=== PATIENT | female | born 1960 | race Caucasian/White ===

== ENCOUNTER 2016-12-01 14:21 | Emergency (ER) | payer MEDICAID ==
[2016-12-01 14:33] VITALS: O2SAT 94
--- NOTE | 2016-12-01 14:33 | EDPHY ---
H & P Stated Complaint: SOB/Wheezing HPI/ROS: HPI CHIEF COMPLAINT: Asthma, wheezing HISTORY OF PRESENT ILLNESS: This patient very pleasant 56-year-old female significant past medical history for asthma. Patient has a nebulizer machine at home she also has albuterol inhaler. She tells me over the past 5 days she has had progressively worsening shortness of breath with wheezing. She denies productive cough. Denies fever, denies chest pain. She tells me she has been using her nebulizer machine twice per day and then her albuterol inhaler 5-6 times per day. She does endorse cough, however no productive sputum. No fever. States that she had called 911 and arrived by ambulance here today due to progressively worsening shortness of breath and wheezing. Denies history of cardiac disease, denies history of PE. Denies recent illness except for asthma for the past 5 days. States at times when she gets this been she does take prednisone. Never been intubated. . of note this patient was given 125 mg Solu-Medrol in route by EMS as well as 3 DuoNeb breathing treatments. She arrives to the emergency room very comfortable with no labored breathing, no hypoxia and feels well. She tells me the breathing treatments gave her great improvement. Past Medical History: Asthma Past Surgical History: denies significant surgical history Social History: denies daily use of drugs, alcohol, tobacco products Family History: Noncontributory ROS REVIEW OF SYSTEMS: A comprehensive 10 point review of systems is otherwise negative aside from elements mentioned in the history of present illness. Exam Constitutional triage nursing summary reviewed, vital signs reviewed, awake/ alert. Eyes normal conjunctivae and sclera, EOMI, PERRLA. HENT normal inspection, atraumatic, moist mucus membranes, no epistaxis, neck supple/ no meningismus, no raccoon eyes. Respiratory clear to auscultation bilaterally, normal breath sounds, no respiratory distress, no wheezing. Cardiovascular rate normal, regular rhythm, no murmur, no edema, distal pulses normal. Gastrointestinal soft, non-tender, no rebound, no guarding, normal bowel sounds, no distension, no pulsatile mass. Genitourinary no CVA tenderness. Musculoskeletal no midline vertebral tenderness, full range of motion, no calf swelling, no tenderness of extremities, no meningismus, good pulses, neurovascularly intact. Skin pink, warm, & dry, no rash, skin atraumatic. Neurologic awake, alert and oriented x 3, AAOx3, moves all 4 extremities equally, motor intact, sensory intact, CN II-XII intact, normal cerebellar, normal vision, normal speech. Psychiatric normal mood/affect. Heme/Lymph/Immune no lymphadenopathy. Differential Diagnosis: Includes but is not limited to in a particular order acute asthma, reactive airway disease, pneumonia, pulmonary embolism, pneumothorax Medical Decision Making: this patient had an IV established receive IV fluids, check basic blood work including D-dimer. Patient will have a chest x-ray two view. The at this time her lungs are clear good air movement, no hypoxia. She received Solu-Medrol and multiple DuoNeb breathing treatments at this time she does not want any further breathing treatment. Will monitor here for further symptoms asthma or hypoxia. Re-evaluation: ED x-ray chest two view: Negative for acute cardiopulmonary disease. Specifically no focal pneumonia. No pneumothorax. Image interpreted by myself. 1534: re-evaluation at this time this patient is resting comfortably no acute distress. Lungs are clear. Pulse ox noted to be 96% on room air. She feels comfortable going home. Her x-rays were reviewed no acute focal pneumonia or pneumothorax. D-dimer negative. She has not had any further wheezing or respiratory symptoms she feels comfortable going home. Prescription given for albuterol nebs, albuterol inhaler, prednisone 60 mg for 5 days burst. She does understand return emergency room if she develops any worsening symptoms questions or concerns. This includes worsening shortness of breath. Source: Patient - Personal History Current Tetanus/Diphtheria Vaccine: Unsure Current Tetanus Diphtheria and Acellular Pertussis (TDAP): Unsure - Medical/Surgical History Hx Asthma: Yes Hx Chronic Respiratory Disease: No Hx Diabetes: No Hx Cardiac Disease: No Hx Renal Disease: No Hx Cirrhosis: No Hx Alcoholism: No Hx HIV/AIDS: No Hx Splenectomy or Spleen Trauma: No Other PMH: Asthma - Social History Smoking Status: Never smoked Constitutional: Initial Vital Signs Temperature (C) 36.9 C 12/01/16 14:30 Heart Rate 87 12/01/16 14:30 Respiratory Rate 20 12/01/16 14:30 Blood Pressure 143/93 H 12/01/16 14:30 O2 Sat (%) 94 12/01/16 14:30 O2 Delivery Mode Room Air Allergies/Adverse Reactions: No Known Allergies Allergy (Unverified 12/01/16 14:28) Home Medications: Medication Instructions Recorded Albuterol Sulfate [ALBUTEROL 0.63 mg IH BID #20 vial.neb 12/01/16 SULFATE] Albuterol [Proventil Inhaler HFA 1 - 2 puffs IH Q4H #1 mdi 12/01/16 (*)] predniSONE 60 mg PO DAILY #15 tab 12/01/16 Medical Decision Making - Data Points Laboratory Results: Laboratory Results 12/01/16 14:31 12/01/16 14:31 12/01/16 14:31 WBC 9.38 10^3/uL (3.80-9.50) RBC 4.61 10^6/uL (4.18-5.33) Hgb 14.8 g/dL (12.6-16.3) Hct 42.9 % (38.0-47.0) MCV 93.1 fL (81.5-99.8) MCH 32.1 pg (27.9-34.1) MCHC 34.5 g/dL (32.4-36.7) RDW 12.1 % (11.5-15.2) Plt Count 302 10^3/uL (150-400) MPV 11.5 fL (8.7-11.7) Neut % (Auto) 54.8 % (39.3-74.2) Lymph % (Auto) 35.1 % (15.0-45.0) [place] % (Auto) 6.1 % (4.5-13.0) Eos % (Auto) 3.1 % (0.6-7.6) Baso % (Auto) 0.6 % (0.3-1.7) Nucleat RBC Rel Count 0.0 % (0.0-0.2) Absolute Neuts (auto) 5.14 10^3/uL (1.70-6.50) Absolute Lymphs (auto) 3.29 H 10^3/uL (1.00-3.00) Absolute Monos (auto) 0.57 10^3/uL (0.30-0.80) Absolute Eos (auto) 0.29 10^3/uL (0.03-0.40) Absolute Basos (auto) 0.06 10^3/uL (0.02-0.10) Absolute Nucleated RBC 0.00 10^3/uL (0-0.01) Immature Gran % 0.3 % (0.0-1.1) Immature Gran # 0.03 10^3/uL (0.00-0.10) D-Dimer < 0.27 ug/mLFEU (0.00-0.50) Sodium 142 mEq/L (134-144) Potassium 4.6 mEq/L (3.5-5.2) Chloride 110 mEq/L (97-110) Carbon Dioxide 23 mEq/l (22-31) Anion Gap 9 mEq/L (8-16) BUN 17 mg/dL (7-23) Creatinine 0.7 mg/dL (0.6-1.0) Estimated GFR > 60 Glucose 94 mg/dL (70-100) Calcium 9.9 mg/dL (8.5-10.4) Departure - Departure Disposition: Home, Routine, Self-Care Clinical Impression: Asthma Qualifiers: Asthma severity: mild intermittent Asthma complication type: with acute exacerbation Qualifier Code: (J45.21) Mild intermittent asthma with (acute) exacerbation Condition: Good Instructions: Asthma (ED) Additional Instructions: 1. Return emergency room if develops any worsening symptoms includes worsening shortness of breath, or questions or concerns. 2. stay well-hydrated. 3. take prednisone as prescribed for the next 5 days Referrals: [place],. [Primary Care Provider] - As per Instructions Prescriptions: Albuterol Sulfate [ALBUTEROL SULFATE] 0.63 mg IH BID #20 vial.neb Albuterol [Proventil Inhaler HFA (*)] 1 - 2 puffs IH Q4H #1 mdi predniSONE 60 mg PO DAILY #15 tab
[2016-12-01] MEDS ORDERED: NS 500 ML IV ONE ×2 (14:43→14:52)
[2016-12-01 14:48] LABS: % IMMATURE GRANULYOCYTES 0.3 % (0.0-1.1); ABSOLUTE IMMATURE GRANULOCYTES 0.03 10^3/uL (0.00-0.10); ADD DIFF? NO; ADD MORPH? NO; ADD SCAN? NO; ATYPICAL LYMPHOCYTE FLAG 0 (0-99); FRAGMENT RBC FLAG 0 (0-99); HEMATOCRIT 42.9 % (38.0-47.0); HEMOGLOBIN 14.8 g/dL (12.6-16.3); LEFT SHIFT FLG 0 (0-99); LIPEMIA HEMOLYSIS FLAG 90 (0-99); MEAN CELL HEMOGLOBIN 32.1 pg (27.9-34.1); MEAN CELL HEMOGLOBIN CONCENTR. 34.5 g/dL (32.4-36.7); MEAN CELL VOLUME 93.1 fL (81.5-99.8); MEAN PLATELET VOLUME 11.5 fL (8.7-11.7); PLATELET CLUMPS FLAG 0 (0-99); PLATELET COUNT 302 10^3/uL (150-400); RED BLOOD CELL COUNT 4.61 10^6/uL (4.18-5.33); RED CELL DISTRIBUTION WIDTH 12.1 % (11.5-15.2)
[2016-12-01 14:57] LABS: ANION GAP 9 mEq/L (8-16); CALCIUM 9.9 mg/dL (8.5-10.4); CARBON DIOXIDE 23 mEq/l (22-31); CHLORIDE 110 mEq/L (97-110); CREATININE 0.7 mg/dL (0.6-1.0); GLOMERULAR FILTRATION RATE > 60; GLUCOSE 94 mg/dL (70-100); POTASSIUM 4.6 mEq/L (3.5-5.2); SODIUM 142 mEq/L (134-144)
--- NOTE | 2016-12-01 15:10 | DX ---
Chest, Two Views at 1426 hours History: Dyspnea, asthma, chest pain. Comparison: None. Findings: Cardiac silhouette is within normal range. No pneumonia, congestive heart failure, pleural effusion, or pneumothorax. Impression: No focal pneumonia.
[2016-12-01 16:20] VITALS: BP 121/69; PULSE 83; RESP 16; TEMP 97.7
== END 2016-12-01 16:22 | disposition home or self-care (01) ==
DX: J45.21 Mild intermittent asthma with (acute) exacerbation (principal)